=== PATIENT | female | born 1980 | race Caucasian/White ===

== ENCOUNTER → 2021-08-12 | Outpatient (CLI) | payer MEDICARE, MEDICAID ==
[~2021-08-12] MED LIST: LEVO75TA4 PO; PROT1TAB2 PO; SUBO8MIS SL; WELL200T PO
== END ==
LOC: M LABSMTC 09:48
PROVIDERS: ATTEND Anesthesiology
DX: Z01.812 Encounter for preprocedural laboratory examination (principal); Z20.822 Contact with and (suspected) exposure to COVID-19

== ENCOUNTER 2021-08-17 06:10 | Day surgery (SDC) | payer MEDICARE, MEDICAID ==
[~2021-08-17] VITALS: Ht 157.5 cm; Wt 101.8 kg
[~2021-08-17 06:10] MED LIST changes: +ACETAMINOPHEN 500 MG TAB PO ONE; +CelecoXIB 400 MG CAP PO ONE; +GABAPENTIN 300 MG CAP PO ONE; +LIDOCAINE 1% MDV 20ML VIAL SQ PRN; +LR 1,000 ML IV ONE; +ONDANSETRON 4MG/2ML VIAL IV ONE
[2021-08-17] MEDS ORDERED: dexameTHASONE 4 MG/ML 1ML VIAL (J1100 PER 1MG) As Ordered ONE (06:58)
[2021-08-17] MEDS ORDERED: ONDANSETRON 4MG/2ML VIAL As Ordered ONE (06:58)
[2021-08-17] MEDS ORDERED: MIDAZOLAM INJ 2MG/2ML VIAL (J2250 PER 1MG) As Ordered ONE (06:58)
[2021-08-17] MEDS ORDERED: fentaNYL 100 MCG/2 ML INJECTION (J3010) As Ordered ONE (06:58)
[2021-08-17] MEDS ORDERED: propofoL 200 MG/20 ML VIAL As Ordered ONE (06:59)
[2021-08-17] MEDS ORDERED: ROCURONIUM BROMIDE 50 MG/5 ML VIAL As Ordered ONE (06:59)
[2021-08-17] MEDS ORDERED: LIDOCAINE 2% 100MG/5ML SDV (FOR ANES.) As Ordered ONE (06:59)
[2021-08-17] MEDS ORDERED: SUGAMMADEX SODIUM 500 MG/5 ML VIAL (BRIDION) As Ordered ONE (06:59)
[2021-08-17] MEDS ORDERED: EPINEPHrine 1MG/ML INJ 30ML MD-VIAL As Ordered ONE (07:10)
[2021-08-17] MEDS ORDERED: BUPIVACAINE/EPIN 0.5% 30 ML VIAL As Ordered ONE (07:11)
[2021-08-17] MEDS ORDERED: ACETAMINOPHEN 1000MG 100ML IV BTL (OFIRMEV) (J0131 PER 10MG) As Ordered ONE (07:45)
[2021-08-17] MEDS ORDERED: ePHEDrine SULFATE 25 MG/5 ML(5MG/ML) SYRINGE As Ordered ONE (07:50)
[2021-08-17] MEDS ORDERED: PHENYLephrine 500MCG 5ML (100MCG/ML) SYRINGE As Ordered ONE (07:50)
[2021-08-17] MEDS ORDERED: ONDANSETRON 4MG/2ML VIAL IV PRN (09:20)
[2021-08-17] MEDS ORDERED: LR 1,000 ML IV SCH ×2 (09:20→09:25)
[2021-08-17] MEDS ORDERED: PERCOCET 5MG/325MG TAB PO PRN (09:20)
[2021-08-17] MEDS ORDERED: METOCLOPRAMIDE INJ 10MG/2ML VIAL (J2765 PER 1) IV PRN (09:20)
[2021-08-17] MEDS: fentaNYL 100 MCG/2 ML INJECTION (J3010) IV PRN ×4 (09:21→09:45)
[2021-08-17] MEDS ORDERED: MORPHINE 4 MG/ML 1ML VIAL/SYRINGE (J2270) As Ordered ONE (10:01)
[2021-08-17] MEDS: MORPHINE 4 MG/ML 1ML VIAL/SYRINGE (J2270) IV PRN ×3 (10:10→10:31)
[2021-08-17 11:48] VITALS: BP 138/74
--- NOTE | 2021-09-08 09:47 | ROOPDOC ---
[facility] Report Of Operation Report of Operation DATE OF PROCEDURE: 08/17/21 PREPROCEDURE DIAGNOSES: Left knee chondromalacia POSTPROCEDURE DIAGNOSES: Left knee diffuse moderate to severe chondromalacia with loose bodies x4; patellofemoral syndrome PROCEDURE: Left knee diagnostic and therapeutic arthroscopy Lateral release of the lateral retinaculum Removal of loose bodies x4 Tricompartmental debridement with the arthroscopic shaver SURGEON: Alonzo Garsia MD MANAGEMENT ENGINEER: Sabine Easley PA-C ANESTHESIA: General ESTIMATED BLOOD LOSS: Less than 15 mL. COMPLICATIONS: No known complications. REMARKS: PROCEDURE NOTE: The patient was seen in the preoperative area, Consent was reviewed or obtained and the appropriate extremity was marked. DESCRIPTION OF PROCEDURE: The patient was brought to the operating room and after a surgical pause, the anesthetic was induced. The patient was appropriately positioned supine on the operating room table. A tourniquet was applied to the appropriate thigh with appropriate padding. Side bolster was also applied to help with manipulation of the extremity during the procedure. The extremity was prepped with chlorhexidine. The patient was draped in the normal sterile fashion. After a surgical safety checklist was performed, and a timeout was performed, the tourniquet was inflated and the incision over the lateral portal site was carried out. The trocar was introduced using the blunt tip. The scope was introduced and the fluid was allowed to run until the joint was insufflated with the scope in the patellofemoral joint. A diagnostic arthroscopy was then carried out. A medial portal was established using needle localization technique. A superior lateral portal was also established using needle localization. Patellofemoral joint: Tight contact laterally with lateral retinacular release performed with arthroscopic cautery device; trochlea demonstrated grade 3 and 4 changes, particularly medially with a large fissure noted laterally that was d ebrided with the arthroscopic shaver. Patella: Grade 2-3 changes Medial gutter: Clear however 3 loose bodies were noted within the medial compartment region which were removed. These appeared to be cartilage flaps Lateral gutter: Clear however a fourth loose body was noted here in the lateral compartment and this was removed. This appeared to be a cartilage flap as well Medial meniscus: Stable throughout testing Medial femoral condyle: Grade 2-3 debrided with the arthroscopic shaver; grade 4 change debrided with the arthroscopic shaver Medial tibial condyle: Grade 1-2 ACL: Stable Lateral meniscus: Lateral meniscus stable throughout testing Lateral femoral condyle: Grade 1 and grade 3 fissuring Lateral tibial plateau: Grade 1-2; grade 3 and 4 debrided with arthroscopic shaver Once the arthroscopic procedure was completed, the fluid was removed from the joint and the wounds were closed with 3. 0 Monocryl suture. Local anesthetic of 0.5% Marcaine with epi was instilled in the soft tissues and into the joint region. Mastisol was applied to the skin followed by Steri-Strips and Telfa and Tegaderm dressing. This was reinforced with an abdominal pad and a large Luis E wrap was placed up to the level of the thigh from the foot and ankle. The patient tolerated the procedure well with no known complications. The patient will be seen for follow-up within 2 weeks, as scheduled. Postoperative instruction booklet was provided. The patient will have prescriptions for oxycodone for pain, baby aspirin for DVT prophylaxis, and senna for constipation. Tylenol and ibuprofen can be used as directed by bottle instructions. Prescriptions were sent to the patient's pharmacy, as requested. Given the patient's severity of her changes within the knee. If the arthroscopic debridement does not provide her with any significant alleviation of her symptoms there would be consideration for a total knee arthroplasty procedure. Thank you for referring this patient to my care, ALONZO GARSIA MD Sep 08, 2021 09:47
== END 2021-08-17 11:50 | disposition home or self-care (01) ==
LOC: M SDC 06:10
PROVIDERS: ATTEND Orthopaedic Surgery Adult Reconstructive Orthopaedic Surgery
DX: M94.262 Chondromalacia, left knee (principal); E03.9 Hypothyroidism, unspecified; Z87.820 Personal history of traumatic brain injury; M54.2 Cervicalgia; F41.9 Anxiety disorder, unspecified; F32.9 Major depressive disorder, single episode, unspecified; K21.9 Gastro-esophageal reflux disease without esophagitis; E66.9 Obesity, unspecified; Z68.41 Body mass index [BMI] 40.0-44.9, adult; Z79.899 Other long term (current) drug therapy; Z79.891 Long term (current) use of opiate analgesic
CPT/HCPCS: 29873; 29879; 97116; J0131; J1100; J2250; J2270; J2370; J2405; J3010

== ENCOUNTER → 2021-10-13 | Outpatient (CLI) | payer MEDICARE, MEDICAID ==
[~2021-10-13] MED LIST changes: -ACETAMINOPHEN 500 MG TAB PO ONE; +ARIP1TAB6; -CelecoXIB 400 MG CAP PO ONE; +DOXE50CA; -GABAPENTIN 300 MG CAP PO ONE; -LIDOCAINE 1% MDV 20ML VIAL SQ PRN; -LR 1,000 ML IV ONE; -ONDANSETRON 4MG/2ML VIAL IV ONE
--- NOTE | 2021-10-13 13:51 | REP ---
INDICATION: CHONDROMALACIA LT KNEE. COMPARISON: None. TECHNIQUE: 3 x [address] scanning through the left hip, knee, and ankle was obtained and reconstructed in sagittal and coronal planes. Torin protocol. FINDINGS: CT of the hip: The femoral head is spherical in shape. The hip joint space is symmetric and well maintained. There is no prominent marginal osteophytosis. There is no subchondral sclerosis and there are no subchondral cysts. There is no evidence of buttressing. There is no gross hip joint effusion. CT of the knee: There is tricompartmental marginal osteophytosis. There is mild subchondral sclerosis involving both femoral and tibial components of the medial compartment. There is mild to moderate medial compartmental narrowing. There is no subchondral cyst formation. There is no acute fracture, dislocation, or subluxation. There is a mild asymmetric patellofemoral joint space narrowing. There is evidence of a knee joint effusion. CT the ankle: The mortise is intact. There are 3 smoothly marginated well corticated ossific densities distal to the medial malleolus. There is no prominent marginal osteophytosis. The subtalar joints are within normal limits. The lateral talar process is sharp. There is no evidence of a heel valgus deformity. Small plantar and retrocalcaneal heel spurs are present. There is evidence of a 4 piece os trigonum. IMPRESSION: Chronic changes are seen involving the knee and ankle as described above. <Electronically signed by Rodney Reynolds > 10/13/21 [id number]
== END ==
LOC: M RAD 13:17
PROVIDERS: ATTEND Orthopaedic Surgery Adult Reconstructive Orthopaedic Surgery
DX: M94.262 Chondromalacia, left knee (principal); M77.32 Calcaneal spur, left foot

== ENCOUNTER → 2021-10-22 | Outpatient (CLI) | payer MEDICARE, MEDICAID | LOC: M LABSMTC 11:18 | PROVIDERS: ATTEND Anesthesiology | DX: Z01.818 Encounter for other preprocedural examination (principal) ==

== ENCOUNTER 2021-10-27 08:44 | Inpatient (IN) | payer MEDICARE, MEDICAID ==
[~2021-10-27] VITALS: Ht 157.5 cm; Wt 102.5 kg
[~2021-10-27 08:44] MED LIST changes: +ACETAMINOPHEN 500 MG TAB PO ONE; -DOXE50CA; +DOXE50CA PO; +LR 1,000 ML IV ONE; +NAPROXEN 250 MG TAB PO ONE; +NS 1,000 ML IV ONE; +PREGABALIN 25 MG CAP (LYRICA) PO ONE; +ROPIVA 125MG/EPINEPH 0.25MG/CLONID 40MCG/KETOR 15MG IN NS 50ML SYRINGE PA ONE; +ceFAZolin SOD 2 GM in IV 1 EA IV ONE; +dexameTHASONE 4 MG/ML 1ML VIAL (J1100 PER 1MG) IV ONE
[2021-10-27] MEDS ORDERED: MIDAZOLAM INJ 2MG/2ML VIAL (J2250 PER 1MG) As Ordered ONE (09:56)
[2021-10-27] MEDS ORDERED: LIDOCAINE 2% 100MG/5ML SDV (FOR ANES.) As Ordered ONE (09:56)
[2021-10-27] MEDS ORDERED: propofoL 500 MG/50 ML VIAL As Ordered ONE ×2 (09:56→12:05)
[2021-10-27] MEDS ORDERED: fentaNYL 100 MCG/2 ML INJECTION (J3010) As Ordered ONE (09:56)
[2021-10-27] MEDS ORDERED: PHENYLEPHRINE 10MG/ML 1ML VIAL (J2370 PER 1) As Ordered ONE (11:01)
[2021-10-27] MEDS ORDERED: TRANEXAMIC ACID 100 MG/ML 10ML VIAL As Ordered ONE (11:01)
[2021-10-27] MEDS ORDERED: ePHEDrine SULFATE 25 MG/5 ML(5MG/ML) SYRINGE As Ordered ONE (13:38)
[2021-10-27] MEDS ORDERED: LR 1,000 ML IV SCH (14:05)
[2021-10-27] MEDS ORDERED: ONDANSETRON 4MG/2ML VIAL IV PRN ×2 (14:05→14:25)
[2021-10-27] MEDS ORDERED: oxyCODONE 5MG TAB PO PRN ×2 (14:05→14:25)
[2021-10-27] MEDS ORDERED: HYDROMORPHONE HCL 0.5 MG/ 0.5 ML SYRINGE (J1170 PER 1) IV PRN (14:05)
[2021-10-27] MEDS ORDERED: fentaNYL 100 MCG/2 ML INJECTION (J3010) IV PRN (14:05)
[2021-10-27] MEDS ORDERED: SENNA 8.6 MG TAB (SENOKOT) PO PRN (14:25)
[2021-10-27] MEDS ORDERED: traMADol 50 MG TAB PO PRN (14:25)
[2021-10-27 17:30] VITALS: BP 135/86
[2021-10-27 18:00] VITALS: BP 124/59
[2021-10-27] MEDS: NAPROXEN 250 MG TAB PO SCH (18:26)
[2021-10-27] MEDS: ACETAMINOPHEN TAB 650MG DOSE (2X325MG) PO SCH ×2 (18:26→21:54)
[2021-10-27] MEDS: ceFAZolin SOD 2 GM in IV 1 EA IV SCH (18:27)
[2021-10-27 19:00] VITALS: BP 112/66
[2021-10-27 21:00] VITALS: BP 124/66
[2021-10-27] MEDS ORDERED: HOME MED LIST COMPLETE! XX SCH (21:05)
[2021-10-27] MEDS: PANTOPRAZOLE 40MG TAB (PROTONIX) PO SCH (21:54)
[2021-10-27] MEDS: ASPIRIN 81MG ENTERIC TABLET PO SCH (21:54)
[2021-10-27] MEDS: DOCUSATE SODIUM 100MG CAPSULE PO SCH (21:54)
[2021-10-27 22:00] VITALS: BP 118/65
[2021-10-28] MEDS: ceFAZolin SOD 2 GM in IV 1 EA IV SCH (02:09)
[2021-10-28] MEDS: NAPROXEN 250 MG TAB PO SCH (02:10)
[2021-10-28] MEDS: ACETAMINOPHEN TAB 650MG DOSE (2X325MG) PO SCH ×2 (02:10→08:36)
[2021-10-28 04:00] VITALS: BP 114/65
[2021-10-28 06:00] VITALS: BP 95/51
[2021-10-28] MEDS ORDERED: LEVOTHYROXINE 75MCG TABLET (0.075MG) PO SCH (06:00)
[2021-10-28 06:51] LABS: HEMATOCRIT 28.3 % (36.0-47.0); HEMOGLOBIN 9.2 g/dl (12.0-15.5); MEAN CORPUSCULAR HEMOGLOBIN 28.1 pg (27.0-33.0); MEAN CORPUSCULAR HGB CONC 32.5 g/dl (32.0-36.5); MEAN CORPUSCULAR VOLUME 86.5 fl (80.0-96.0); PLATELET COUNT, AUTOMATED 233 10^3/uL (150-450); RED BLOOD COUNT 3.27 10^6/uL (4.00-5.40)
[2021-10-28 07:18] LABS: BLOOD UREA NITROGEN 12 MG/DL (7-18); CALCIUM LEVEL 8.1 MG/DL (8.5-10.1); CARBON DIOXIDE LEVEL 27 MEQ/L (21-32); CHLORIDE LEVEL 108 MEQ/L (98-107); CREATININE FOR GFR 0.65 MG/DL (0.55-1.30); GLOMERULAR FILTRATION RATE > 60.0 (>58); GLUCOSE, FASTING 107 MG/DL (70-100); POTASSIUM SERUM 3.7 MEQ/L (3.5-5.1); SODIUM LEVEL 139 MEQ/L (136-145)
[2021-10-28 08:00] VITALS: BP 115/58
[2021-10-28] MEDS: oxyCODONE 5MG TAB PO PRN ×2 (08:35→12:46)
[2021-10-28] MEDS: PANTOPRAZOLE 40MG TAB (PROTONIX) PO SCH (08:36)
[2021-10-28] MEDS: DOCUSATE SODIUM 100MG CAPSULE PO SCH (08:36)
[2021-10-28] MEDS: ASPIRIN 81MG ENTERIC TABLET PO SCH (08:36)
[2021-10-28] MEDS ORDERED: BUPRENORPHINE/NALOXONE 8-2MG SUBLINGUAL TABLET(SUBOXONE) SL SCH (09:00)
[2021-10-28] MEDS ORDERED: FERROUS SULFATE 325MG TAB PO SCH (09:00)
[2021-10-28] MEDS ORDERED: ASCORBIC ACID 500 MG TAB PO SCH (09:00)
[2021-10-28] MEDS ORDERED: OXYC-517 PO (10:23)
== END 2021-10-28 13:15 | disposition home health service (06) | DRG 470 ==
LOC: M SDC 08:44 → M MS5PR 14:35 → M SDC 17:00 → M MS5PR 10-28 13:15
PROVIDERS: ADMIT Internal Medicine; ATTEND Internal Medicine
PROC: 8E0Y0CZ Robotic Assisted Procedure of Lower Extremity, Open Approach (ICD-10-PCS; 2021-10-27)
PROC: 0SRD0JZ Replacement of Left Knee Joint with Synthetic Substitute, Open Approach (ICD-10-PCS; principal; 2021-10-27 10:45)
DX: M17.12 Unilateral primary osteoarthritis, left knee (principal); E03.9 Hypothyroidism, unspecified; Z79.899 Other long term (current) drug therapy

== ENCOUNTER → 2021-11-15 | Outpatient (CLI) | payer MEDICARE, MEDICAID ==
[~2021-11-15] MED LIST changes: -ACETAMINOPHEN 500 MG TAB PO ONE; -LR 1,000 ML IV ONE; -NAPROXEN 250 MG TAB PO ONE; -NS 1,000 ML IV ONE; +OXYC-517 PO; -PREGABALIN 25 MG CAP (LYRICA) PO ONE; -ROPIVA 125MG/EPINEPH 0.25MG/CLONID 40MCG/KETOR 15MG IN NS 50ML SYRINGE PA ONE; -ceFAZolin SOD 2 GM in IV 1 EA IV ONE; -dexameTHASONE 4 MG/ML 1ML VIAL (J1100 PER 1MG) IV ONE
== END ==
LOC: M SOG 10:04
PROVIDERS: ATTEND Orthopaedic Surgery Adult Reconstructive Orthopaedic Surgery
DX: Z96.652 Presence of left artificial knee joint (principal)

== ENCOUNTER → 2022-10-28 | Outpatient (CLI) | payer MEDICARE, MEDICAID | LOC: M SOG 07:57 | PROVIDERS: ATTEND Orthopaedic Surgery Adult Reconstructive Orthopaedic Surgery | DX: Z96.652 Presence of left artificial knee joint (principal); Z53.8 Procedure and treatment not carried out for other reasons ==

== ENCOUNTER → 2022-11-04 | Outpatient (CLI) | payer MEDICARE, MEDICAID | LOC: M SOG 08:13 | PROVIDERS: ATTEND Orthopaedic Surgery Adult Reconstructive Orthopaedic Surgery | DX: Z96.652 Presence of left artificial knee joint (principal); Z53.8 Procedure and treatment not carried out for other reasons ==

== ENCOUNTER → 2022-11-18 | Outpatient (CLI) | payer MEDICARE, MEDICAID | LOC: M SOG 08:06 | PROVIDERS: ATTEND Orthopaedic Surgery Adult Reconstructive Orthopaedic Surgery | DX: Z47.89 Encounter for other orthopedic aftercare (principal); Z96.652 Presence of left artificial knee joint ==